=== PATIENT | female | born 2000 | race Two or more races ===

== ENCOUNTER 2022-04-14 18:15 | Emergency (ER) | payer OTHER ==
[~2022-04-14] VITALS: Ht 167.6 cm; Wt 54.4 kg
[2022-04-14] MEDS ORDERED: LEVOTHYROXINE25 MCG PO (18:42)
[2022-04-14] MEDS ORDERED: KETO10TA2 PO (21:22)
[2022-04-14] MEDS ORDERED: ONDANSETRON ODT4 MG PO (21:22)
== END 2022-04-14 21:47 | disposition home or self-care (01) ==
LOC: EMR PED 18:15
DX: R10.31 Right lower quadrant pain (principal); Z91.013 Allergy to seafood; Z88.8 Allergy status to other drugs, medicaments and biological substances

== ENCOUNTER 2022-04-20 22:03 | Emergency (ER) | payer OTHER ==
[~2022-04-20] VITALS: Ht 167.6 cm; Wt 54.4 kg
[~2022-04-20 22:03] MED LIST: KETO10TA2 PO; LEVOTHYROXINE25 MCG PO; ONDANSETRON ODT4 MG PO
[2022-04-21] MEDS ORDERED: PEPCID40 MG PO (04:09)
[2022-04-21] MEDS ORDERED: LEVSIN/SL0.125 MG SL (04:09)
[2022-04-21] MEDS ORDERED: ONDANSETRON ODT4 MG PO (04:09)
== END 2022-04-21 04:38 ==
LOC: ER 22:03 → EMR PED 22:06 → ER 22:06 → EMR PED 04-21 04:38
DX: R10.9 Unspecified abdominal pain (principal); E28.2 Polycystic ovarian syndrome; M60.9 Myositis, unspecified; Z91.013 Allergy to seafood; Z88.8 Allergy status to other drugs, medicaments and biological substances; N13.30 Unspecified hydronephrosis

== ENCOUNTER 2023-10-07 17:59 | Emergency (ER) | payer OTHER ==
[~2023-10-07] VITALS: Ht 167.6 cm; Wt 53.1 kg
[~2023-10-07 17:59] MED LIST changes: +LEVSIN/SL0.125 MG SL; +PEPCID40 MG PO
[2023-10-07] MEDS ORDERED: FLUCONAZOLE150 MG PO (18:11)
[2023-10-07] MEDS ORDERED: LEVO-T25 MCG PO (18:11)
[2023-10-07] MEDS ORDERED: KETOROLAC TROMETHAMINE 60 MG VIAL IM ONE ×2 (20:28→20:30)
[2023-10-07 20:56] LABS: HEMATOCRIT 38.5 % (36.0-45.00); HEMOGLOBIN 13.4 g/dL (12.0-15.00); MEAN CELL VOLUME 90.4 fL (80.00-100.00); MEAN CORPUSCULAR HEMOGLOBIN 31.5 pg (27.00-32.0); MEAN CORPUSCULAR HGB CONC 34.9 g/dl (32.0-36.0); PLATELET COUNT 289 K/uL (150-450); RED BLOOD COUNT 4.26 M/uL (4.00-6.00); RED CELL DISTRIBUTION WIDTH 12.9 % (11.5-14.5)
[2023-10-07 21:15] LABS: URINE APPEARANCE Clear; URINE BILIRRUBIN Negative (NEGATIVE); URINE BLOOD NHT; URINE COLOR Yellow; URINE GLUCOSE Negative (NEGATIVE); URINE LEUKOCYTE Negative; URINE NITRATE Negative; URINE PROTEIN Negative (NEGATIVE); URINE UROBILINOGEN 0.2 E.U./dl
[2023-10-07 21:19] LABS: URINE BACTERIA 705.4 uL (0.0-1933); URINE EPITHELIAL CELLS 27.1 uL (0.0-38.8); URINE RBC 17.2 uL (0.0-20.8); URINE WBC 3.8 uL (0.0-23.2)
[2023-10-07 21:36] LABS: CALCIUM 9.6 mg/dL (8.5-10.1); CREATININE SERUM 0.74 mg/dL (0.55-1.02); GFR 99.07; POTASSIUM 3.66 mEq/L (3.5-5.1)
== END 2023-10-07 22:54 | disposition home or self-care (01) ==
LOC: ER 18:00
PROVIDERS: Emergency Medicine
DX: R10.2 Pelvic and perineal pain (principal); Z88.9 Allergy status to unspecified drugs, medicaments and biological substances; Z91.013 Allergy to seafood